=== PATIENT | male | born 1960 | race Caucasian/White ===

== ENCOUNTER 2017-06-06 05:41 | Outpatient (CLI) | payer BC ==
[~2017-06-06] VITALS: Ht 175.3 cm; Wt 93.9 kg
[2017-06-06] MEDS ORDERED: LISI-552 PO ×2 (09:52)
[2017-06-06] MEDS ORDERED: HYDR-3812 PO ×2 (09:52)
[2017-06-06] MEDS ORDERED: MESA1.2T2 PO ×2 (09:52)
[2017-06-06] MEDS ORDERED: OMG1KC PO ×2 (09:52)
[2017-06-06] MEDS ORDERED: ALLO300T2 PO ×2 (09:52)
[2017-06-07] MEDS ORDERED: OXYC-201 PO ×2 (14:42)
== END 2017-06-06 09:59 ==
LOC: PREOP 05:41
PROVIDERS: ATTEND Surgery
DX: Z01.818 Encounter for other preprocedural examination (principal); K64.9 Unspecified hemorrhoids; Z86.010 Personal history of colon polyps

== ENCOUNTER 2017-06-07 09:55 | Day surgery (SDC) | payer BC ==
[~2017-06-07] VITALS: Ht 175.3 cm; Wt 93.9 kg
[~2017-06-07 09:55] MED LIST: ALLO300T2 PO; HYDR-3812 PO; LISI-552 PO; MESA1.2T2 PO; OMG1KC PO
[2017-06-07] MEDS ORDERED: ceFAZolin 1 GM/NS 50 ML IVPB IV ONE ×2 (10:15)
[2017-06-07] MEDS ORDERED: CATHETER FLUSH 10 ML SYR IV PRN (10:15)
[2017-06-07] MEDS ORDERED: ONDANSETRON 4 MG/2 ML (SDV) Z0FRAN ONE (10:20)
[2017-06-07] MEDS ORDERED: LACTATED RINGERS 1,000 ML IV ONE (10:20)
[2017-06-07] MEDS ORDERED: fentaNYL INJECTION 100 MCG/2 ML AMP ONE ×2 (10:20→13:58)
[2017-06-07] MEDS ORDERED: proPOfol 200 MG/20 ML (DIPRIVAN) VIAL IV ONE (10:20)
[2017-06-07] MEDS ORDERED: MIDAZOLAM 2 MG/2 ML (VERSED) VIAL ONE (10:20)
[2017-06-07] MEDS ORDERED: SEVOFLURANE (ULTANE) 15 ML INHAL SOLN ONE ×7 (10:20→14:09)
[2017-06-07] MEDS ORDERED: LIDOCAINE PF 2% 5 ML (XYLOCAINE) VIAL ONE (10:20)
[2017-06-07] MEDS ORDERED: DEXAMETHASONE 10 MG/ML (DECADRON) 1 ML VIAL ONE (10:20)
[2017-06-07] MEDS ORDERED: LACTATED RINGERS 1,000 ML IV PRN (11:16)
[2017-06-07 11:23] VITALS: BP 167/102
[2017-06-07] MEDS ORDERED: LIDOCAINE 1% INJ 20 ML (XYLOCAINE) VIAL ONE (11:50)
[2017-06-07] MEDS ORDERED: BUP/EPI 0.5% 1:200,000 (MARCAINE) 10ML VIAL IJ ONE (11:50)
--- NOTE | 2017-06-07 12:13 | Progress Note-Pre Operative ---
Pre-Operative Progress Note H&P Reviewed The H&P was reviewed, patient examined and no changes noted. Date Seen by Provider: Jun 07, 2017 Time Seen by Provider: 12:00 Date H&P Reviewed: Jun 07, 2017 Time H&P Reviewed: 12:00 Pre-Operative Diagnosis: chronic symptomatic stage 3 ext and int hemorrhoids, hx polyps LORIN YE MD Jun 07, 2017 12:13
[2017-06-07] MEDS ORDERED: HYDROcodone/APAP 5 MG/325 MG (LORTAB) TAB PO ONE (12:15)
[2017-06-07] MEDS ORDERED: morphine INJ 10 MG/ML 1ML (SYR OR VIAL) IVP PRN (12:15)
[2017-06-07] MEDS ORDERED: ACETAMINOPHEN 325 MG TABLET/CAPLET (TYLENOL) PO PRN (12:15)
[2017-06-07] MEDS ORDERED: ONDANSETRON 4 MG/2 ML (SDV) Z0FRAN IVP PRN ×2 (12:15→14:45)
[2017-06-07] MEDS ORDERED: morphine INJ 10 MG/ML 1ML (SYR OR VIAL) ONE (14:16)
[2017-06-07] MEDS ORDERED: LABETALOL HCL 20 MG/4 ML VIAL ONE (14:36)
--- NOTE | 2017-06-07 14:40 | Progress Note-Post Operative ---
Post-Operative Progess Note Surgeon (s)/Old Coin Dealer (s) Surgeon DR. ADAN YE M.D. Old Coin Dealer: ENEDINA PAZ APRN Pre-Operative Diagnosis chronic symptomatic stage 3 ext and int hemorrhoids, hx polyps Post-Operative Diagnosis CHRONIC STAGE 3-4 EXTERNAL AND INTERNAL HEMORRHOIDS, MILD CECAL INFLAMATION Procedure & Operative Findings Date of Procedure 06/07/17 Procedure Performed/Findings COLONOSCOPY WITH BIOPSY, HEMORRHOIDECTOMY Anesthesia Type GET Estimated Blood Loss Estimated blood loss (mL): MINIMAL Specimens/Packing Specimens Removed SEE NURSING NOTES ENEDINA SABA RN TELE Jun 07, 2017 2:40 pm
[2017-06-07] MEDS ORDERED: OXYC-201 PO (14:42)
[2017-06-07] MEDS: morphine INJ 10 MG/ML 1ML (SYR OR VIAL) IVP PRN ×3 (14:42→15:00)
[2017-06-07] MEDS ORDERED: fentaNYL INJECTION 100 MCG/2 ML AMP IVP PRN (14:45)
[2017-06-07] MEDS ORDERED: MEPERIDINE (DEMEROL) INJ 50 MG/ML IVP PRN (14:45)
--- NOTE | 2017-06-07 14:45 | Discharge Inst-Surgical ---
D/C Lap Instructions-KIDO New, Converted, or Re-Newed RX: Other (PATIENT ALREADY HAS SCRIPT) Follow Up Appt in 2 weeks Activity as tolerated No driving for 24 hours No driving while on pain medications Sitz baths 3-4 times daily and after Bowel Movements Stool softners daily Incentive Spirometry use every 2 hours while awake Regular Diet Symptoms to Report: Fever over 101 degree F, Nausea/Vomiting Infection Signs and Symptoms to report: Increased redness, Foul odor of wound, Increased drainage Bathing instructions: May shower Operative Area Clean/Dry; Keep incision clean/dry If any problems/questions: Contact your physician or go to Emergency Room ENEDINA SABA APRN Jun 07, 2017 2:45 pm
[2017-06-07] MEDS ORDERED: hydrALAZINE (APESOLINE) 20 MG/ML VIAL ONE (14:48)
[2017-06-07 15:40] VITALS: BP 129/95
[2017-06-07] MEDS: oxyCODONE/APAP 5/325MG (PERCOCET 5) TABLET PO PRN ×2 (15:46→16:11)
[2017-06-07 16:10] VITALS: BP 145/94
[2017-06-07 16:40] VITALS: BP 156/92
[2017-06-07 16:45] VITALS: BP 156/92
--- NOTE | 2017-06-07 20:23 | OPERATIVE REPORT ---
DATE OF SERVICE: 06/07/2017 ATTENDING PHYSICIAN: Dr. Manning. PREOPERATIVE DIAGNOSIS: Chronic between stage III and IV external and internal hemorrhoids, symptomatic hemorrhoids, history of colon polyp. POSTOPERATIVE DIAGNOSIS: Chronic between stage II and III external and internal hemorrhoids. The remainder of the rectum and colon were normal. There was a mild amount of inflammation of the cecum; however, this may have been due to the preparation. PROCEDURE: 1. Hemorrhoidectomy. 2. Colonoscopy with biopsy. SURGEON: Dr. Aleman. YARD PERSON: Natanael Armando APRN. ANESTHESIA: General laryngeal mask airway. ESTIMATED BLOOD LOSS: Minimal. FINDINGS: Three large external and internal hemorrhoidal cushions with active irritation and inflammation as well as bleeding. No fistulous tracts or inflammatory changes or rectal inflammation to indicate any inflammatory bowel disease. Mild irritation of the cecum; however, this may have been due to the colonic prep. DISPOSITION: The patient tolerated the procedure well. The patient is a 57-year-old male with significant hemorrhoids. He has had between stage III and IV chronic external and internal hemorrhoids with frequent episodes of irritation and inflammation and bleeding. He also reports significant amount of pain. 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 Upon examination, he was found to have between stage III and IV chronic external and internal hemorrhoids. He also reports that he has had a history of colon polyps in the past. He also reports a remote history of some type of inflammatory bowel disease; however, this was corrected with medications and he has not had a problem since that time. He also does not report any family history of colon cancer. DESCRIPTION OF PROCEDURE: The patient was brought to the operating room, laid supine on the table. After adequate IV pain and sedative medications and general laryngeal mask airway intubation, the patient was placed in lithotomy position and the perineum was prepped and draped in standard surgical fashion. We first proceeded with colonoscopy portion of the procedure. A digital rectal examination was performed which revealed chronic between stage III and IV external and internal hemorrhoids with active inflammation, irritation as well as friability of tissue and ease of bleeding. There were no patchy inflammatory areas or any fistulous tracts going laterally or longitudinally to indicate any active inflammatory bowel disease. Normal sphincter tone was felt and there were no palpable masses. The endoscope was then intubated to the anus and rectum and gently insufflated. The endoscope was then advanced thru the valves of [place] of the rectum with no polyps or any neoplasms identified. The endoscope was then advanced to the sigmoid colon where no diverticulosis identified. We then proceeded through the remainder of the descending, transverse, ascending colon and the cecum. At the level of the cecum there was a mild level of inflammation of the cecum, which appeared to be most likely secondary to colonic prep. A biopsy was taken with forceps with visualization of good hemostasis. The endoscope was then slowly withdrawn taking a second look and suctioning residual air with no additional findings. The patient tolerated this portion of the procedure well. We will have him continue with medical management with a high fiber diet with at least 30 to 35 grams of fiber per day as well as at least 64 fluid ounces of water daily to promote soft stools on a daily basis. Under the same general laryngeal mask airway intubation anesthesia we then proceeded with a formal hemorrhoidectomy. There were three large hemorrhoidal cushions identified. We systematically excised all three large hemorrhoidal cushions in a similar fashion. We first proceeded with dilatation of the rectum after anesthetizing the pudendal nerves bilaterally using 1% lidocaine and placement of a speculum. We proceeded with placement of the ligating suture in the anal mucosa using a 2-0 Vicryl suture on an SH needle. The external and internal hemorrhoidal sections were then excised en bloc using a Harmonic scalpel with visualization of good hemostasis. The mucosa was then approximated using this suture in a running fashion with visualization of good hemostasis. We then proceeded with excision of the second two large hemorrhoidal external and internal cushions in a similar fashion with visualization of good hemostasis. After the procedure, there was no stricture identified with two fingerbreadths palpable throughout the anus. Good hemostasis was observed and anal plug with Gelfoam and Surgicel placed into the rectum with visualization of good hemostasis. The anus was then covered with gauze followed by ABD pad followed by mesh pants shorts. The patient tolerated the procedure well. He will be instructed to proceed with a very high fiber diet as well as stool softeners to promote very loose stools on a daily basis. His first bowel movement will encompass the anal plug which will be stringy and liquid, which he will be instructed to pull the remaining residual pieces out. He will also be instructed to do Sitz baths q.i.d. as well after as well as after every bowel movement. There will be drainage and he will be instructed to keep the area clean and dry with gauze dressing. Job ID: [id number] DocumentID: [id number] Dictated Date: 06/07/2017 14:38:41 Rn Surgical Pcu Date: 06/07/2017 20:22:50 Dictated By: LORIN ALEMAN MD MTDD
== END 2017-06-07 17:00 | disposition home or self-care (01) ==
LOC: SDC 09:55
PROVIDERS: ATTEND Surgery
DX: K64.2 Third degree hemorrhoids (principal); I10 Essential (primary) hypertension; K50.90 Crohn's disease, unspecified, without complications; M10.9 Gout, unspecified; Z86.010 Personal history of colon polyps; Z79.899 Other long term (current) drug therapy; F17.210 Nicotine dependence, cigarettes, uncomplicated; Z11.2 Encounter for screening for other bacterial diseases
CPT/HCPCS: 87081

== ENCOUNTER 2019-10-14 06:42 | Day surgery (SDC) | payer BC, OTHER ==
[~2019-10-14] VITALS: Ht 173 cm; Wt 100.0 kg
[2019-10-14] VITALS (9 sets, daily range): BP systolic 122–169; BP diastolic 81–109
[~2019-10-14 06:42] MED LIST changes: +ACHD5005 PO; -HYDR-3812 PO; +OXYC1TAB16 PO
[2019-10-14] MEDS ORDERED: NS IV 1000 ML 3,000 ML ONE (06:46)
[2019-10-14] MEDS ORDERED: HEParin 1000 UNIT/ML (10ML VIAL) FOR BOLUS ONE (06:46)
[2019-10-14] MEDS ORDERED: LIDOCAINE 1% INJ 20 ML 20 ML VIAL ONE (06:46)
[2019-10-14] MEDS ORDERED: NS IV 1000 ML 1,000 ML IV SCH ×2 (07:00→09:22)
[2019-10-14] MEDS ORDERED: ASPI-999 PO (07:10)
[2019-10-14] MEDS ORDERED: MTP25TSR PO (07:10)
[2019-10-14] MEDS ORDERED: ROSU40TA23 PO (07:10)
[2019-10-14 07:14] LABS: HEMOGLOBIN 15.9 G/DL (13.3-17.7); MEAN PLATELET VOLUME 8.8 FL (7.4-10.4); RED CELL DISTRIBUTION WIDTH 13.2 % (10.0-14.5); WHITE BLOOD COUNT 7.2 10^3/uL (4.3-11.0)
[2019-10-14 07:23] LABS: PROTHROMBIN TIME PATIENT 13.7 SEC (12.2-14.7)
[2019-10-14 07:27] LABS: ALANINE AMINOTRANSFERASE 79 U/L (0-55); ALBUMIN 4.1 GM/DL (3.2-4.5); ALKALINE PHOSPHATASE 102 U/L (40-136); BILIRUBIN,TOTAL 0.8 MG/DL (0.1-1.0); BUN/CREATININE RATIO 11; CALCIUM 9.3 MG/DL (8.5-10.1); CARBON DIOXIDE 23 MMOL/L (21-32); CHLORIDE 105 MMOL/L (98-107); CHOLESTEROL 193 MG/DL (< 200); CREATININE SERUM 0.91 MG/DL (0.60-1.30); GFR ESTIMATED > 60; GLUCOSE 115 MG/DL (70-105); HDL CHOLESTEROL 38 MG/DL (40-60); POTASSIUM 4.1 MMOL/L (3.6-5.0); SODIUM 139 MMOL/L (135-145); TOTAL PROTEIN 6.9 GM/DL (6.4-8.2); TRIGLYCERIDES 270 MG/DL (<150); VLDL CHOLESTEROL 54 MG/DL (5-40)
[2019-10-14] MEDS ORDERED: MIDAZOLAM 5 MG/5 ML (VERSED) VIAL ONE (07:52)
[2019-10-14] MEDS ORDERED: fentaNYL INJECTION 100 MCG/2 ML AMP ONE (07:52)
[2019-10-14] MEDS ORDERED: ADENOSINE 3 MG/1 ML (ADENOSCAN) 30ML VIAL IV ONE (08:40)
--- NOTE | 2019-10-14 09:22 | Cardiac Procedure Note-CS/ASA ---
Pre-Procedure Note Pre-Op Procedure Note H&P Reviewed The H&P was reviewed, patient examined and no changes noted. Date H&P Reviewed: Oct 14, 2019 Time H&P Reviewed: 08:30 Conscious Sedation Pre-Proced Time 08:30 ASA Score 3 For ASA 3 and 4: Consider anesthesia and medical clearance. Also, for patients with a history of failed moderate sedation consider anesthesia. Airway Lungs Heart ASA score ASA 1: a normal healthy patient ASA 2: a patient with a mild systemic disease (mid diabetes, controlled hypertension, obesity ASA 3: a patient with a severe systemic disease that limits activity (angina, COPD, prior Myocardial infarction) ASA 4: a patient with an incapacitating disease that is a constant threat to life (CHF, renal failure) ASA 5: a moribund patient not expected to survive 24 hrs. (ruptured aneurysm) ASA 6: a declared brain- patient whose organs are being harvested. For emergent operations, add the letter E after the classification Mallampati Classification Grade 2 Sedation Plan Analgesia, Amnesia, Plan communicated to team members, Discussed options with patient/fam, Discussed risks with patient/fam The patient is an appropriate candidate to undergo the planned procedure, sedation, and anesthesia. The patient immediately re-assessed prior to indication. GHAZALA ARIAS MD FACP FAC CCDS Oct 14, 2019 09:22
[2019-10-14] MEDS ORDERED: METO50TA7 PO (09:26)
[2019-10-14] MEDS ORDERED: CLOP75TA69 PO (09:26)
--- NOTE | 2019-10-14 09:26 | Discharge Inst-Cardiology ---
Discharge Inst-Cardiac Discharge Medications New Medications: Clopidogrel Bisulfate (Plavix) 75 Mg Tablet 75 MG PO DAILY, #30 TAB 5 Refills Metoprolol Succinate (Metoprolol Succinate) 50 Mg Tab.er.24h 50 MG PO DAILY, #30 TAB 0 Refills Continued Medications: Allopurinol (Allopurinol) 300 Mg Tablet 300 MG PO DAILY, TAB Aspirin (Aspirin) 81 Mg Tab.chew 81 MG PO DAILY, TAB Mesalamine (Lialda) 1.2 Gm Tablet.dr 1.2 GM PO DAILY, TAB [place] 3 Polyunsat Fatty Acids (Fish Oil 1,000 mg Capsule) 1,000 Mg Cap 1000 MG PO DAILY, CAP Oxycodone HCl/Acetaminophen (Percocet 7.5-325 mg Tablet) 1 Each Tablet 1-2 EACH PO Q4H for Pain, #60 TAB Rosuvastatin Calcium (Rosuvastatin Calcium) 40 Mg Tablet 20 MG PO HS, TAB Discontinued Medications: Metoprolol Succinate (Metoprolol Succinate) 25 Mg Tab.er.24h 25 MG PO DAILY, TAB Patient Instructions Patient Instructions: NO SMOKING GHAZALA ARIAS MD FACP FAC CCDS Oct 14, 2019 09:26
--- NOTE | 2019-10-14 09:27 | Discharge Inst-Post CATH ---
Discharge Inst-CATH/EP Post Cardiac Cath/EP D/C Inst Follow Up/Plan F/u with Dr Bautista next week No smoking ACTIVITY * Go Home directly and rest. * Limit activity of the leg (or wrist if it was used) for 7 days including aerobics, swimming, jogging, bicycling, etc. * Restrict stair-climbing for 7 days if possible, if not, climb up with your non-cath leg, then bring together on the same step. * Avoid lifting, pushing, pulling or excessive movement of the affected extremity for 7 days. * Customary sexual activity may be resumed after 2 days-use caution not to use a position that strains or causes pain to the affected extremity. * No driving for 24 hours. * NO SMOKING. * Avoid straining for bowel movements for 7 days. * Gentle walking on level ground is allowed. * Returning to work will depend on the type of procedure and the results. Your doctor will discuss this with you. CALL YOUR DOCTOR FOR ANY OF THE FOLLOWING: *If bleeding from the puncture site occurs- Apply gentle pressure to site with clean cloth and call your doctor or EMS. * If a knot or lump forms under the skin, increases in size, or causes pain. * If bruising appears to be worsening or moving further down your leg instead of disappearing. * Temperature above 101 F. CARE OF YOUR GROIN INCISION; * Bruising or purple discoloration of the skin near the puncture site is common. * You may shower only, no bathtub bathing for 5 days. Be careful to avoid slipping as your leg may feel stiff. * If a closure device was used on your femoral artery, please see the attached guide regarding care of the device and your leg. * Leave dressing on FOR 24 hours. CARE OF YOUR WRIST INCISION; * Bruising or purple discoloration of the skin near the puncture site is common. * You may shower. * DO NOT submerge wrist. * Leave dressing on FOR 24 hours. GHAZALA BAUTISTA MD [facility] CCDS Oct 14, 2019 09:27
[2019-10-14] MEDS ORDERED: CLOPIDOGREL 75 MG (PLAVIX) TABLET PO ONE (09:30)
[2019-10-14] MEDS ORDERED: PATIENT MAY USE OWN MEDS, ALL PO SCH (09:30)
--- NOTE | 2019-10-14 11:48 | CARDIAC CATHETERIZATION ---
DATE OF SERVICE: 10/14/2019 The patient is a 59-year-old man who has multiple coronary artery disease risk factors and who has been experiencing chest discomfort. Cardiac catheterization was carried out today after having obtained an informed consent. DESCRIPTION OF PROCEDURE: He was brought to the cardiac catheterization laboratory in a fasting state. Right groin was prepared and draped in the usual sterile fashion. Lidocaine 1% was used for local anesthesia. Modified Seldinger technique was used to advance a 5-Omani sheath in right femoral artery, 5-Omani JL4 catheter was used for left coronary angiography, 5-Omani JR4 catheter for right coronary angiography, 5-Omani pigtail catheter was used for left heart catheterization and left ventricular angiography. FRACTIONAL FLOW RESERVE MEASUREMENT IN THE LEFT ANTERIOR DESCENDING: Following completion of the coronary angiography and left ventricular angiography, we carried out fractional flow reserve measurement at the mid left anterior descending, which was exhibiting 50% to 60% stenosis on angiography. We exchanged the sheath and wire for a 6-Omani sheath. We gave 6000 units of intravenous heparin. We used a 6-Omani JL4 guide catheter to engage the coronary artery. We advanced a pressure wire across the lesion and the tip was placed in the distal vessel. We gave adenosine 140 mcg per kilogram per minute for 2-1/2 minutes. Fractional flow reserve of 0.89, indicating hemodynamic nonsignificance. The wire was removed. Angiography of the coronary artery was repeated. It did not indicate any change in the coronary status. The guide catheter was removed. Angiography of the right femoral artery had been carried out through the sheath at the beginning of the procedure. At the end of the procedure, Mynx was used to achieve hemostasis. He tolerated the procedure well. HEMODYNAMICS: Left ventricular end-diastolic pressure following coronary angiography was 13 mmHg. There is no significant pressure gradient on pullback across the aortic valve. Ascending aortic pressure was 130/86 with a mean of 108 mmHg. CORONARY ANGIOGRAPHY: Left main coronary artery does not exhibit significant disease. There is diffuse moderate calcification of the proximal and mid coronary vessels. This involves all coronary vessels. The mid left anterior descending artery had 50% to 60% stenosis with a fractional flow reserve of 0.89, indicating hemodynamic nonsignificance. The rest of the coronaries have mild plaque. LEFT VENTRICULAR ANGIOGRAPHY: Left ventricular angiography was carried out in the right anterior oblique projection. Global left ventricular systolic function is normal. No regional wall motion abnormalities seen. Left ventricular ejection fraction is approximately 60%. CONCLUSIONS: 1. Mild to moderate coronary artery disease consisting primarily of 50% to 60% mid vessel stenosis of the left anterior descending with a fractional flow reserve of 0.89. 2. Normal global left ventricular systolic function with ejection fraction of 60%. 3. Left ventricular end-diastolic pressure at the upper limit of normal. DISCUSSION AND RECOMMENDATIONS: Based on results of the study, it appears appropriate to continue a conservative regimen. Focus of cardiovascular management is on risk factor modification. We have again asked him to quit smoking immediately and completely. Rosuvastatin 40 mg a day is being continued. Aspirin is being continued, but increase in beta blockers. We are adding clopidogrel to the regimen. Close outpatient followup is advised. Job ID: [id number] DocumentID: [id number] Dictated Date: 10/14/2019 09:38:11 [employer] Date: 10/14/2019 11:47:38 Dictated By: GHAZALA ARIAS MD, MA, FACP, FACC,
== END 2019-10-14 12:25 | disposition home or self-care (01) ==
LOC: CATH 06:42 → SDC 09:18 → CATH 12:25
PROVIDERS: ATTEND Internal Medicine Cardiovascular Disease
DX: I25.10 Atherosclerotic heart disease of native coronary artery without angina pectoris (principal); I49.1 Atrial premature depolarization; F17.210 Nicotine dependence, cigarettes, uncomplicated; I49.3 Ventricular premature depolarization; R42 Dizziness and giddiness; I10 Essential (primary) hypertension; E78.5 Hyperlipidemia, unspecified; R06.02 Shortness of breath; Z79.82 Long term (current) use of aspirin; Z79.899 Other long term (current) drug therapy
CPT/HCPCS: 36415; 80053; 80061; 85027; 85610; 85730; 87081; 93458

== ENCOUNTER 2021-04-26 16:09 | Outpatient (RCR) | payer BC, OTHER ==
[~2021-04-26 16:09] MED LIST changes: +ASPI-999 PO; +CLOP75TA69 PO; -LISI-552 PO; +LISI20TA26 PO; +METO50TA7 PO; +MTP25TSR PO; +ROSU40TA23 PO
== END 2021-04-26 16:30 | disposition home or self-care (01) ==
PROVIDERS: ATTEND Nurse Practitioner Family
DX: M72.0 Palmar fascial fibromatosis [Dupuytren] (principal)

== ENCOUNTER → 2022-09-15 | Outpatient (CLI) | payer OTHER ==
[~2022-09-15] VITALS: Ht 175 cm; Wt 95.0 kg
[~2022-09-15] MED LIST changes: +CATHETER FLUSH 10 ML SYR IVP PRN; +CLOP-31 PO; -CLOP75TA69 PO; +REGADENOSON 0.4 MG/5 ML SYR (LEXISCAN) IV ONE
[2022-09-15 09:08] VITALS: BP 149/93
== END ==
LOC: CARD 07:20
PROVIDERS: ATTEND Internal Medicine Cardiovascular Disease
DX: I25.10 Atherosclerotic heart disease of native coronary artery without angina pectoris (principal)
CPT/HCPCS: 78452; 93017

== ENCOUNTER → 2023-05-04 | Outpatient (CLI) | payer OTHER ==
[~2023-05-04] MED LIST changes: -CATHETER FLUSH 10 ML SYR IVP PRN; -REGADENOSON 0.4 MG/5 ML SYR (LEXISCAN) IV ONE
== END ==
LOC: CARD 08:45
PROVIDERS: ATTEND Nurse Practitioner Family
DX: I34.0 Nonrheumatic mitral (valve) insufficiency (principal)
CPT/HCPCS: 93225; 93226; 93306